=== PATIENT | male | born 1980 | race Caucasian/White ===

== ENCOUNTER 2024-01-16 10:57 | Outpatient (AMB) | payer BC, SELFPAY ==
--- NOTE | 2024-01-16 10:53 | MHC.AM.SUB ---
Vital Signs 01/16/24 11:00 BP 148/92 H Blood Pressure Location Rt brachial Position Sitting Pulse 76 Pulse Source Pulse Oximeter Pulse Oximetry (%) 99 Oxygen Delivery Method Room Air Intake Visit Reasons: Intake Allergies cat dander [CATS] Allergy (Unknown, Unverified 06/10/20 15:16) RUNNY NOSE HPI HPI Intake: Details: Patient presents to [facility] care Reports he was referred by a friend PCP- [facility], Dr. 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 Stably housed, lives at home with his Endorses good support system Started taking percocets in 2004, would take orally or snort (approx 40-80mg/day) In 2011 he started taking suboxone films he bought from other people Has been taking 8mg suboxone daily and maintaining well with no cravings or withdrawal symptoms Takes occasional THC edible His goal is to to taper off of suboxone He denies any other substance use history Has no providers No diagnoses NKA Takes famotidine 40mg/ day, and albuterol as needed for asthma Hx of DUI in 2012 Denies overdose hx Review of Systems Const Reports as per HPI Physical Exam Vital Signs: Last Vital Signs Pulse 76 01/16/24 11:00 BP 148/92 H 01/16/24 11:00 Pulse Ox 99 01/16/24 11:00 Oxygen Delivery Method Room Air 01/16/24 11:00 Const General: cooperative and no acute distress Resp Effort & Inspection: normal respiratory effort and able to speak in complete sentences Psych Appearance: grossly normal Mental Status: mental status grossly normal Speech and movement: Normal speech and movement present Affect: normal affect Attitude: cooperative Thought process: Normal thought process present Results AMB 14 Panel Urine Drug Screen Urine Marijuana (THC) Negative Last Edit by Valentina Barnes CMA on 01/16/24 11:11 Urine Cocaine Negative Last Edit by Valentina Barnes CMA on 01/16/24 11:11 Urine Morphine Negative Last Edit by Valentina Barnes CMA on 01/16/24 11:11 Urine Methamphetamine Negative Last Edit by Valentina Barnes CMA on 01/16/24 11:11 Urine Amphetamine Negative Last Edit by Valentina Barnes CMA on 01/16/24 11:11 Urine Benzodiazepine Negative Last Edit by Valentina Barnes CMA on 01/16/24 11:11 Urine Barbiturates Negative Last Edit by Valentina Barnes CMA on 01/16/24 11:11 Urine Methadone Negative Last Edit by Valentina Barnes CMA on 01/16/24 11:11 Urine Buprenorphine Positive Last Edit by Valentina Barnes CMA on 01/16/24 11:11 Urine Tricyclic Antidepressant Positive Last Edit by Valentina Barnes CMA on 01/16/24 11:11 Urine MDMA Negative Last Edit by Valentina Barnes CMA on 01/16/24 11:11 Urine Oxycodone Negative Last Edit by Valentina Barnes CMA on 01/16/24 11:11 Urine Phencyclidine Negative Last Edit by Valentina Barnes CMA on 01/16/24 11:11 Urine Propoxyphene Negative Last Edit by Valentina Barnes CMA on 01/16/24 11:11 Results Reviewed Results Reviewed: Laboratory Last Values POC Urine Buprenorphine Positive 01/16/24 11:09 POC Urine Morphine Negative 01/16/24 11:09 POC Urine Oxycodone Negative 01/16/24 11:09 POC Urine Methadone Negative 01/16/24 11:09 POC Urine Propoxyphene Negative 01/16/24 11:09 POC Urine Barbiturates Negative 01/16/24 11:09 POC U Tricyclic Antidpr Positive 01/16/24 11:09 POC Urine PCP Negative 01/16/24 11:09 POC Ur Amphetamines Negative 01/16/24 11:09 POC Ur Methamphetamine Negative 01/16/24 11:09 POC Urine MDMA Negative 01/16/24 11:09 POC Ur Benzodiazepine Negative 01/16/24 11:09 POC Urine Cocaine Negative 01/16/24 11:09 POC Ur Marijuana (THC) Negative 01/16/24 11:09 Assessment & Plan Assessment & Plan (1) Opioid use disorder: Code(s): F11.90 - Opioid use, unspecified, uncomplicated Category: Medical Plan: -Sent Suboxone 8mg to pt pharmacy -Reviewed with him different taper options -Provided him with literature for Brixadi and Sublocade, he is to go home and think on which option he would like -Follow up 1 week Orders: Orders AMB 14 Panel Urine Drug Screen 01/16/24 Z51.81 - Encounter for therapeutic drug level monitoring Medications: New buprenorphine-naloxone 8-2 mg 1 film buccal DAILY 30 ea 0RF
[2024-01-16 11:00] VITALS: BP 148/92; PULSE 76; O2SAT 99
== END 2024-01-16 11:33 | disposition home or self-care (01) ==
PROVIDERS: Visit Provider Nurse Practitioner Family
DX: F11.90 Opioid use, unspecified, uncomplicated (principal)
CPT/HCPCS: 99204

== ENCOUNTER → 2024-01-16 10:57 | Outpatient (BNVA) | payer OTHER, SELFPAY | PROVIDERS: Visit Provider Nurse Practitioner Family | DX: Z51.81 Encounter for therapeutic drug level monitoring (principal); F11.20 Opioid dependence, uncomplicated | CPT/HCPCS: 80305 ==

== ENCOUNTER 2024-01-31 10:58 | Outpatient (AMB) | payer BC, SELFPAY ==
[2024-01-31 10:55] VITALS: BP 140/90; PULSE 80; O2SAT 99
--- NOTE | 2024-01-31 10:55 | MHC.AM.SUB ---
Vital Signs 01/31/24 10:55 BP 140/90 H Blood Pressure Location Lt brachial Position Sitting Pulse 80 Pulse Source Pulse Oximeter Pulse Oximetry (%) 99 Oxygen Delivery Method Room Air Intake Visit Reasons: MAT Visit Allergies cat dander [CATS] Allergy (Unknown, Unverified 06/10/20 15:16) RUNNY NOSE HPI HPI MAT Visit: Details: Patient presents for MAT visit He has been taking suboxone 8mg/day and is tolerating it well Feels stable in his recovery Is continuing to think about if he wants to transition to injection at some point, feels as though he wants to continue with the films for the time being. He expressed it has been a weight off coming to the clinic and getting prescribed his films instead of resorting to buying them off the street. Has no concerns today HPI Comments Details: Patient presents for MAT visit Review of Systems Const Reports as per HPI Physical Exam Vital Signs: Last Vital Signs Pulse 80 01/31/24 10:55 BP 140/90 H 01/31/24 10:55 Pulse Ox 99 01/31/24 10:55 Oxygen Delivery Method Room Air 01/31/24 10:55 Const General: cooperative and no acute distress Resp Effort & Inspection: normal respiratory effort and able to speak in complete sentences Psych Appearance: grossly normal Mental Status: mental status grossly normal Speech and movement: Normal speech and movement present Affect: normal affect Attitude: cooperative Thought process: Normal thought process present Assessment & Plan Assessment & Plan (1) Opioid use disorder: Code(s): F11.90 - Opioid use, unspecified, uncomplicated Category: Medical Plan: -Mass pat reviewed -Refill sent to pharmacy (refill is a little early due to provider will be out of the office) -Patient encouraged to call [facility] with questions or concerns. -Follow up 1 month Medications: Refilled buprenorphine-naloxone 8-2 mg 1 film buccal DAILY 30 ea 0RF
== END 2024-01-31 11:15 | disposition home or self-care (01) ==
PROVIDERS: Visit Provider Nurse Practitioner Family
DX: F11.90 Opioid use, unspecified, uncomplicated (principal)
CPT/HCPCS: 99213

== ENCOUNTER → 2024-01-31 10:58 | Outpatient (BNVA) | payer BC, SELFPAY | PROVIDERS: Visit Provider Nurse Practitioner Family ==

== ENCOUNTER 2024-03-10 11:03 | Outpatient (AMB) | payer BC, SELFPAY ==
[2024-03-10 11:13] VITALS: BP 120/60; PULSE 83; RESP 20; O2SAT 98
--- NOTE | 2024-03-10 11:13 | MHC.AM.SUB ---
Vital Signs 03/10/24 11:13 BP 120/60 Blood Pressure Location Lt brachial Position Sitting Respiration 20 Pulse 83 Pulse Source Pulse Oximeter Pulse Oximetry (%) 98 Intake Visit Reasons: MAT Visit Allergies cat dander [CATS] Allergy (Unknown, Unverified 06/10/20 15:16) RUNNY NOSE HPI HPI MAT Visit: Details: Patient presents for MAT appointment Has been taking 8mg suboxone daily Stable on current dose No concerns for side effects, no cravings or withdrawal symptoms He is still considering whether he would like to get the injection or not HPI Comments Details: Patient presents for MAT visit Review of Systems Const Reports as per HPI Physical Exam Vital Signs: Last Vital Signs Pulse 83 03/10/24 11:13 Resp 20 03/10/24 11:13 BP 120/60 03/10/24 11:13 Pulse Ox 98 03/10/24 11:13 Const General: cooperative and no acute distress Resp Effort & Inspection: normal respiratory effort and able to speak in complete sentences Psych Appearance: grossly normal Mental Status: mental status grossly normal Speech and movement: Normal speech and movement present Affect: normal affect Attitude: cooperative Thought process: Normal thought process present Assessment & Plan Assessment & Plan (1) Opioid use disorder: Code(s): F11.90 - Opioid use, unspecified, uncomplicated Category: Medical Plan: -Mass pat reviewed -No refill due at this time -Follow up 6 weeks Medications: Refilled buprenorphine-naloxone 8-2 mg 1 film buccal DAILY 30 ea 0RF
== END 2024-03-10 11:29 | disposition home or self-care (01) ==
PROVIDERS: Visit Provider Nurse Practitioner Family
DX: F11.90 Opioid use, unspecified, uncomplicated (principal)
CPT/HCPCS: 99213

== ENCOUNTER → 2024-03-10 11:03 | Outpatient (BNVA) | payer BC, SELFPAY | PROVIDERS: Visit Provider Nurse Practitioner Family | DX: F11.20 Opioid dependence, uncomplicated (principal) ==

== ENCOUNTER 2024-06-23 13:53 | Outpatient (AMB) | payer BC, SELFPAY ==
--- NOTE | 2024-06-23 14:02 | A.OFFVISCC_ITS ---
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 Doing well on current dose, however some days he notes increase in anxiety and takes 1/2 film discussed adding PRN 2mg dose patient agreeable [id number] last opiate use --sustained remission Review of Systems Const Reports as per HPI and Reports no additional complaints Physical Exam Const General: cooperative, healthy appearing, no acute distress and well groomed Nutritional Appearance: average body habitus Orientation/consciousness: patient oriented x3 Limitations: no limitations Neuro General: patient oriented x3 Assessment & Plan Assessment & Plan (1) Opioid use disorder, moderate, in sustained remission: Code(s): F11.21 - Opioid dependence, in remission Category: Medical Plan: * increase dose by 2mg PRN * follow up 3 months * labs completed at PCP YULIANA signed will request Medications: New buprenorphine-naloxone 2-0.5 mg (Suboxone) 1 film buccal DAILY 15 ea 2RF Refilled buprenorphine-naloxone 8-2 mg 1 film buccal DAILY 30 ea 2RF
== END 2024-06-23 15:03 | disposition home or self-care (01) ==
PROVIDERS: Visit Provider Nurse Practitioner Psychiatric/Mental Health
DX: F11.21 Opioid dependence, in remission (principal)
CPT/HCPCS: 99214

== ENCOUNTER → 2024-06-23 13:53 | Outpatient (BNVA) | payer BC, SELFPAY | PROVIDERS: Visit Provider Nurse Practitioner Psychiatric/Mental Health ==

== ENCOUNTER → 2024-09-29 14:51 | Outpatient (BNVA) | payer BC, SELFPAY | PROVIDERS: Visit Provider Nurse Practitioner Psychiatric/Mental Health ==

== ENCOUNTER 2025-01-28 15:22 | Outpatient (AMB) | payer BC, SELFPAY ==
--- NOTE | 2025-01-28 15:26 | MHC.OFFVIS ---
Vital Signs 01/28/25 15:38 Pulse 75 Pulse Source Pulse Oximeter Pulse Oximetry (%) 99 Oxygen Delivery Method Room Air Intake Visit Reasons: MAT Office Allergies cat dander [CATS] Allergy (Unknown, Verified 01/28/25 15:39) RUNNY NOSE HPI HPI MAT Office: Details: He is doing well and no concerns. Review of Systems Const All systems reviewed & are unremarkable except as noted in HPI and below Physical Exam Vital Signs: Last Vital Signs Pulse 75 01/28/25 15:38 Pulse Ox 99 01/28/25 15:38 Oxygen Delivery Method Room Air 01/28/25 15:38 Const General: cooperative Results AMB 14 Panel Urine Drug Screen Urine Marijuana (THC) Negative Last Edit by Kailash Pastor CMA on 01/28/25 15:42 Urine Cocaine Negative Last Edit by Kailash Pastor CMA on 01/28/25 15:42 Urine Morphine Negative Last Edit by Kailash Pastor CMA on 01/28/25 15:42 Urine Methamphetamine Negative Last Edit by Kailash Pastor CMA on 01/28/25 15:42 Urine Amphetamine Negative Last Edit by Kailash Pastor CMA on 01/28/25 15:42 Urine Benzodiazepine Negative Last Edit by Kailash Pastor CMA on 01/28/25 15:42 Urine Barbiturates Negative Last Edit by Kailash Pastor CMA on 01/28/25 15:42 Urine Methadone Negative Last Edit by Kailash Pastor CMA on 01/28/25 15:42 Urine Buprenorphine Positive Last Edit by Kailash Pastor CMA on 01/28/25 15:42 Urine Tricyclic Antidepressant Positive Last Edit by Kailash Pastor CMA on 01/28/25 15:42 Urine MDMA Negative Last Edit by Kailash Pastor CMA on 01/28/25 15:42 Urine Oxycodone Negative Last Edit by Kailash Pastor CMA on 01/28/25 15:42 Urine Phencyclidine Negative Last Edit by Kailash Pastor CMA on 01/28/25 15:42 Urine Propoxyphene Negative Last Edit by Kailash Pastor CMA on 01/28/25 15:42 Results Reviewed Results Reviewed: Laboratory Last Values POC Urine Buprenorphine Positive 01/28/25 15:38 POC Urine Morphine Negative 01/28/25 15:38 POC Urine Oxycodone Negative 01/28/25 15:38 POC Urine Methadone Negative 01/28/25 15:38 POC Urine Propoxyphene Negative 01/28/25 15:38 POC Urine Barbiturates Negative 01/28/25 15:38 POC U Tricyclic Antidpr Positive 01/28/25 15:38 POC Urine PCP Negative 01/28/25 15:38 POC Ur Amphetamines Negative 01/28/25 15:38 POC Ur Methamphetamine Negative 01/28/25 15:38 POC Urine MDMA Negative 01/28/25 15:38 POC Ur Benzodiazepine Negative 01/28/25 15:38 POC Urine Cocaine Negative 01/28/25 15:38 POC Ur Marijuana (THC) Negative 01/28/25 15:38 Assessment & Plan Assessment & Plan (1) Opioid use disorder, moderate, in sustained remission: Code(s): F11.21 - Opioid dependence, in remission Category: Medical Plan: Continue Suboxone. See as scheduled Orders: Orders AMB 14 Panel Urine Drug Screen 01/28/25 Z51.81 - Encounter for therapeutic drug level monitoring Medications: New buprenorphine-naloxone 8-2 mg (Suboxone) 1.5 film sublingual DAILY 45 ea 2RF 30 days Coding Level of Care Code Est Pt Level 3 (58643) Diagnoses Opioid use disorder, moderate, in sustained remission F11.21
[2025-01-28 15:38] VITALS: PULSE 75; O2SAT 99
== END 2025-01-28 16:32 | disposition home or self-care (01) ==
LOC: HO.HCC 15:23
PROVIDERS: Visit Provider Internal Medicine
DX: F11.21 Opioid dependence, in remission (principal)
CPT/HCPCS: 99213

== ENCOUNTER → 2025-01-28 15:22 | Outpatient (BNVA) | payer BC, SELFPAY | PROVIDERS: Visit Provider Internal Medicine | DX: F11.20 Opioid dependence, uncomplicated (principal) | CPT/HCPCS: 80307 ==

== ENCOUNTER 2025-05-01 13:30 | Outpatient (AMB) | payer BC, SELFPAY ==
[2025-05-01 13:41] VITALS: BP 128/78; PULSE 74; O2SAT 97
--- NOTE | 2025-05-01 13:41 | MHC.OFFVIS ---
Vital Signs 05/01/25 13:41 Weight 201 lb BP 128/78 Pulse 74 Pulse Oximetry (%) 97 Intake Visit Reasons: MAT Allergies cat dander (CATS) Allergy (Unknown, Verified 05/01/25 13:42) RUNNY NOSE HPI HPI MAT: Details: He is taking medication regularly. He has no complaints. Review of Systems Const All systems reviewed & are unremarkable except as noted in HPI and below Physical Exam Vital Signs: Last Vital Signs Pulse 74 05/01/25 13:41 BP 128/78 05/01/25 13:41 Pulse Ox 97 05/01/25 13:41 Const General: cooperative Assessment & Plan Assessment & Plan (1) Opioid use disorder, moderate, in sustained remission: Comment: He has no complaints Code(s): F11.21 - Opioid dependence, in remission Category: Medical Plan: Continue current plan. See as scheduled. Medications: New buprenorphine-naloxone 4-1 mg (Suboxone) place 1 strip/tab under (each) side of tongue 1 film sublingual TID 90 ea 2RF 30 days Coding Level of Care Code Est Pt Level 3 (89174) Diagnoses Opioid use disorder, moderate, in sustained remission F11.21
== END 2025-05-01 14:08 | disposition home or self-care (01) ==
PROVIDERS: Visit Provider Internal Medicine
DX: F11.21 Opioid dependence, in remission (principal)
CPT/HCPCS: 99213